=== PATIENT | male | born 1965 | race African-American/Black ===

== ENCOUNTER 2022-10-01 09:05 | Emergency (ER) | payer MEDICAID, SELFPAY ==
[2022-10-01 09:06] VITALS: BP 155/99; PULSE 72; RESP 16; TEMP 36.1; O2SAT 100; BMI 26.7
[2022-10-01 09:12] VITALS: PULSE 70; RESP 16; O2SAT 100
--- NOTE | 2022-10-01 09:20 | EKG12_ITS ---
Test Reason : LEFT ARM NUMBNESS Blood Pressure : / mmHG Vent. Rate : 066 BPM Atrial Rate : 066 BPM P-R Int : 196 ms QRS Dur : 150 ms QT Int : 438 ms P-R-T Axes : 039 -35 012 degrees QTc Int : 459 ms Normal sinus rhythm Left axis deviation Right bundle branch block Minimal voltage criteria for LVH, may be normal variant ( R in aVL ) Abnormal ECG Confirmed by ANA ROSA KAUR, CARMEN ([id number]), commissioning editor MELANIE BARBER ([id number]) on 10/05/2022 12:24:48 PM Referred By: TL Confirmed By:CARMEN OSEGUERA MD
[2022-10-01 09:29] LABS: Absolute Lymphocyte Count 1.86 X10^3/uL (0.83-4.51); Absolute Neutrophil Count 2.6 X10^3/uL (2.0-7.7); Basophil# 0.01 X10^3/uL; Basophil% 0.2 % (0-1); Eosinophil# 0.22 X10^3/uL; Eosinophils% 4.3 % (0-5); Hemoglobin 12.5 g/dL (13.0-16.5); Lymphocyte # 1.86 X10^3/ul (0.83-4.51); Mean Corp Hgb Conc 32.9 g/dL (32-36); Mean Corpuscular Hgb 27.7 pg (27.0-32.0); Mean Corpuscular Volume 84.1 fL (80-94); Mean Platelet Vol. 10.4 fl (6.2-12.0); Monocyte# 0.44 X10^3/uL; Monocyte% 8.5 % (0-10); NRBC Flagged by Analyzer 0 % (0-5); Neutrophil # 2.62 X10^3/uL (2.7-7.7); Neutrophil % 50.8 % (47-70); Platelet Count 207 K/mm3 (150-450); RBC Distribution Width CV 14.6 % (11.6-14.6); RBC Distribution Width SD 44.7 fl (35.1-43.9); Red Blood Count 4.52 M/mm3 (4.6-6.2); White Blood Count 5.2 K/mm3 (4.4-11.0)
[2022-10-01 09:45] LABS: ALB/GLOB Ratio 1.2 RATIO (0.9-2.4); AST(SGOT) 20 U/L (15-37); Alanine Aminotransfer ALT/SGPT 23 U/L (16-61); Albumin, Serum 3.7 g/dL (3.2-5.0); Alkaline Phosphatase 49 U/L (45-117); Anion Gap 7 (5-15); BUN 15 mg/dL (7-18); Calcium,Total 8.6 mg/dL (8.5-10.1); Chloride 111 mmol/L (98-107); EST Glomerular Filtration Rate 82 mL/min (>60); Est Glom Filt Rate - Afr Amer 99 mL/min (>60); Estimated Creatinine Clearance 101.27 ml/min; Globulin 3.2 g/dL (2.2-4.2); Glucose 105 mg/dL (74-106); Potassium 3.6 mmol/L (3.5-5.1); Protein, Total 6.9 g/dL (6.4-8.2); Sodium Level 143 mmol/L (136-145)
[2022-10-01 10:02] LABS: Bacteria 0 SEEN /hpf (None Seen); Red Blood Cells-Urine 0 SEEN /hpf (0-5); White Blood Cells 0 SEEN /hpf (0-5)
[2022-10-01 10:03] LABS: Color, Urine Yellow (Yellow); Glucose, Dipstick Normal (Normal); Ketone-Dipstick Negative (Negative); Leukocyte Esterase-Dipstick Negative /ul (Negative); Nitrite-Dipstick Negative (Negative); Occult Blood-Urine 10 /ul (Negative); Protein-Dipstick 15 mg/dl (Negative); Specific Gravity, Urine 1.025 (1.002-1.030); Urine Bilirubin Dipstick Negative (Negative); Urine Clarity Sl. Cloudy (Clear); Urine Urobilinogen Normal (Normal)
--- NOTE | 2022-10-01 10:15 | EX.ED.DYSGE1 ---
HPI History of Present Illness Chief Complaint: Syncope Detail of Chief Complaint: Patient reports transient syncope Informant: patient Onset/Context/Timing Onset: Weeks Context: Sudden Onset Timing: Intermittent Quality: Falls back and duration is seconds Location: Several episodes at work and in the emergency department during history por Current Severity: Mild Maximum Severity: Moderate Worsened by: Nothing Relieved by: Nothing Associated Symptoms Associated Symptoms: Bilateral lower extremity swelling involving the legs and feet Narrative Narrative: Patient is a 56-year-old male with history of hypertension. He has relocated from [facility]. Records from outside facility were reviewed. Patient had an echocardiogram in 2020 which revealed a EF of 58%. There was mild biatrial enlargement noted. Patient is concerned because of the swelling of his legs and feet. This is a new symptom. He denies orthopnea or PND. He denies dyspnea, dyspnea on exertion. He denies chest discomfort with exertion or at rest. He denies history of VTE. He denies risk factors for VTE. He denies pain or discoloration of his legs. He denies fever, chills night sweats. He denies headache, visual, ocular auditory symptoms. Prior similar symptoms: Yes Recent Illness/Hospitalization: No [facility] BY [facility] Medical History Depression High cholesterol Hypertension Home Medications aspirin 81 mg tablet,delayed release 81 mg PO DAILY 10/01/22 [History Last Taken Unknown] bupropion HCl 150 mg 24 hr tablet, extended release 150 mg PO DAILY 10/01/22 [History Last Taken Unknown] duloxetine 60 mg capsule,delayed release 60 mg PO DAILY 10/01/22 [History Last Taken Unknown] lisinopril 20 mg-hydrochlorothiazide 25 mg tablet 1 tab PO DAILY 10/01/22 [History Last Taken Unknown] Allergy/AdvReac Type Severity Reaction Status Date / Time No Known Allergies Allergy Verified 10/01/22 09:08 Family History other other (Patient states he has had 4 family members who suddenly.) Social History (Updated 10/01/22 @ 10:[address] Juan Horn MD) household members: none Smoking Status: Current every day smoker tobacco type: cigarettes alcohol intake: never substance use type: does not use ROS ROS ED Constitutional Constitutional ED: Denies chills, fever(s), subjective, sweats or weight loss Eyes Eyes: Denies blurry vision, change in vision or diplopia ENT ENT ED: Denies ear pain, rhinorrhea or sore throat Cardiovascular Cardiovascular: Denies chest pain, orthopnea, palpitations, paroxysmal nocturnal dyspnea or racing heartbeat Respiratory/Chest Respiratory/Chest: Denies cough, dyspnea, dyspnea on exertion, orthopnea or paroxysmal nocturnal dyspnea Gastrointestinal Gastrointestinal: Denies abdominal pain, melena, nausea or vomiting Genitourinary Genitourinary ED: Denies dysuria or hematuria Musculoskeletal Musculoskeletal: Denies arthralgias, back pain, myalgias or neck pain Integumentary Denies rash Neurologic Neurologic: Denies headache(s), paresthesias or weakness Psychiatric Psychiatric: Reports anxiety Hematologic/Lymphatic Hematologic/Lymphatic: Reports systems reviewed and no addt'l complaints, except as documented and none EXAM Physical Exam Const Vital Signs: 10/01/22 09:06 10/01/22 09:12 10/01/22 09:12 Temperature 97.0 F L Temperature Source Temporal Pulse Rate 72 70 Respiratory Rate 16 16 Respiratory Pattern Normal Blood Pressure 155/99 H Blood Pressure Mean 117 Pulse Ox 100 100 Oxygen Delivery Method Room Air Room Air 10/01/22 10:21 Temperature Temperature Source Pulse Rate 60 Respiratory Rate 18 Respiratory Pattern Blood Pressure 133/96 H Blood Pressure Mean 108 Pulse Ox 100 Oxygen Delivery Method Room Air Positive well nourished and well developed General Appearance ED: well developed and NAD; Negative for cyanotic, diaphoretic or pallor HEENT Reports moist mucous membranes HEENT Narrative: Head is atraumatic normocephalic. Ears normal. Nares patent. There is no discharge. Mucosas moist. Uvula is midline. There is no erythema or exudate the posterior pharynx. Eyes PERRL and EOMs intact bilaterally General Eye ED: Negative for pale conjunctiva or scleral icterus Neck no lymphadenopathy, supple and no JVD Neck Narrative: Trachea is midline. Chest Wall inspection of chest normal and palpation of chest normal Resp normal respiratory effort and clear to auscultation bilaterally Cardio regular rate, regular rhythm, S1 normal heart sound, S2 normal heart sound and no murmurs GI normal to inspection, nondistended, normoactive bowel sounds, non-tender, non-distended and no masses; Negative for hepatosplenomegaly GI Narrative: There is no palpable pulsatile mass. There is no abdominal bruit. Palpation: soft Back/Spine no CVA tenderness Extremity Extremity Narrative: There is no discoloration, leg vein distention, palpable cords tenderness on the distribution of deep venous system. General Extremety ED: Yes edema; Negative for tenderness General Extremity: edema Neuro oriented x3, CN's II-XII intact bilaterally and no sensory deficits noted Sensorium / Orientation: alert Psych mental status grossly normal Skin no rashes or lesions noted, no wounds and skin turgor normal General Skin Exam: Negative for jaundice or pallor MDM MDM MDM Narrative Medical decision making narrative: Patient presents transient syncopal episode. He also presents because of swelling of his legs and feet. Of note during the history he reported episode. Monitor reveals a sinus rhythm. There is no evidence of heart block. There was no dysrhythmia. There was no loss of postural tone. Suspect patient's reported syncopal episode is a component of anxiety. Also understand that patient's had for family numbers who suddenly. Since patient has no abnormal auscultatory findings chest x-ray was not obtained. The lymphedema may be dependent. Will obtain UA to assess for proteinuria and comprehensive metabolic panel to assess electrolytes, renal function and total protein and albumin. If patient does endorse less swelling in his feet when he awakes from sleep. This would suggest dependent lymphedema. Recommended compression hoses. Patient's blood pressure at time of discharge was 126/92. Lab Data Attestation: I reviewed the patient's lab results. Lab results narrative: CBC is normal. Comprehensive metabolic panel is essentially normal. Chloride is slight elevated 111. UA is remarkable for occult blood and proteinuria, 15. This would not explain patient's bilateral lymphedema. Labs: Laboratory Results - last 24 hr 10/01/22 10/01/22 10/01/22 09:15 09:15 09:55 WBC 5.2 RBC 4.52 L Hgb 12.5 L Hct 38.0 L MCV 84.1 MCH 27.7 MCHC 32.9 RDW Std Deviation 44.7 H RDW Coeff of Stu 14.6 Plt Count 207 MPV 10.4 Immature Gran % (Auto) 0.200 Neut % (Auto) 50.8 Lymph % (Auto) 36.0 [place] % (Auto) 8.5 Eos % (Auto) 4.3 Baso % (Auto) 0.2 Absolute Neuts (auto) 2.6 Absolute Lymphs (auto) 1.86 Nucleated RBC % 0 Sodium 143 Potassium 3.6 Chloride 111 H Carbon Dioxide 25.0 Anion Gap 7 BUN 15 Creatinine 1.00 Estim Creat Clear Calc 101.27 Est GFR (MDRD) Af Amer 99 Est GFR (MDRD) Non-Af 82 BUN/Creatinine Ratio 15.0 Glucose 105 Calcium 8.6 Total Bilirubin 0.40 AST 20 ALT 23 Alkaline Phosphatase 49 Total Protein 6.9 Albumin 3.7 Globulin 3.2 Albumin/Globulin Ratio 1.2 Urine Color Yellow Urine Clarity Sl. Cloudy Urine pH 6.0 Ur Specific [place] 1.025 Urine Protein 15 H Urine Glucose (UA) Normal Urine Ketones Negative Urine Occult Blood 10 H Urine Nitrite Negative Urine Bilirubin Negative Urine Urobilinogen Normal Ur Leukocyte Esterase Negative Urine RBC 0 SEEN Urine WBC 0 SEEN Ur Squamous Epith Cells 0-5 SEEN Urine Bacteria 0 SEEN Urine Mucus 4+ Discharge Plan Triage Chief Complaint: Syncope ED Provider: Juan Horn Dx/Rx/DC Orders Clinical Impression: Lymphedema of both lower extremities, Hypertension, Proteinuria, Hematuria, microscopic Instructions: ED Peripheral Edema, Bilateral, ED Hypertension, Established Prescriptions: No Action aspirin [Aspir-81] 81 mg Tablet,Delayed Release (Dr/Ec) 81 mg PO DAILY lisinopril-hydrochlorothiazide 20-25 mg Tablet 1 tab PO DAILY bupropion HCl 150 mg Tablet Extended Release 24 Hr 150 mg PO DAILY duloxetine 60 mg Capsule,Delayed Release(Dr/Ec) 60 mg PO DAILY Primary Care Provider: RAMIREZ LYON Referrals: RAMIREZ LYON [Other] Arya Boland MD [Med Staff - Installation Drafter] - 1-2 Weeks Disposition Disposition: Home, Self Care
[2022-10-01 10:18] LABS: Mucous, Urine 4+ /hpf (<or=2+)
[2022-10-01 10:20] LABS: Squamous Epithelial Cells - UA 0-5 SEEN /hpf (0-5)
[2022-10-01 10:21] VITALS: BP 133/96; PULSE 60; RESP 18; O2SAT 100
[2022-10-01 10:54] VITALS: BP 135/101; PULSE 72; RESP 16; O2SAT 99
== END 2022-10-01 10:55 | disposition home or self-care (01) ==
PROVIDERS: Emergency Provider Emergency Medicine; Visit Provider Emergency Medicine
DX: R80.9 Proteinuria, unspecified (principal); I10 Essential (primary) hypertension; R31.29 Other microscopic hematuria; I89.0 Lymphedema, not elsewhere classified; R55 Syncope and collapse; M79.89 Other specified soft tissue disorders; E78.00 Pure hypercholesterolemia, unspecified; F17.210 Nicotine dependence, cigarettes, uncomplicated; Z79.82 Long term (current) use of aspirin; Z79.899 Other long term (current) drug therapy; F41.9 Anxiety disorder, unspecified
CPT/HCPCS: 80053; 81001; 85025; 93005; 99283; A4216

== ENCOUNTER → 2023-06-08 | Outpatient (CLI) | payer MEDICAID, SELFPAY ==
[2023-06-08 13:43] LABS: Hemoglobin 15.1 g/dL (13.0-16.5); Mean Corp Hgb Conc 32.8 g/dL (32-36); Mean Corpuscular Hgb 28.1 pg (27.0-32.0); Mean Corpuscular Volume 85.7 fL (80-94); Mean Platelet Vol. 10.9 fl (6.2-12.0); Platelet Count 231 K/mm3 (150-450); RBC Distribution Width CV 13.9 % (11.6-14.6); RBC Distribution Width SD 43.8 fl (35.1-43.9); Red Blood Count 5.37 M/mm3 (4.6-6.2); White Blood Count 5.3 K/mm3 (4.4-11.0)
[2023-06-08 14:00] LABS: ALB/GLOB Ratio 1.1 RATIO (0.9-2.4); AST(SGOT) 20 U/L (15-37); Alanine Aminotransfer ALT/SGPT 43 U/L (16-61); Albumin, Serum 4.1 g/dL (3.2-5.0); Alkaline Phosphatase 74 U/L (45-117); Anion Gap 6 (5-15); BUN 15 mg/dL (7-18); BUN/Creat Ratio 12.9 RATIO (10-20); Calcium,Total 9.4 mg/dL (8.5-10.1); Chloride 106 mmol/L (98-107); Creatinine, Serum 1.16 mg/dL (0.70-1.30); EST Glomerular Filtration Rate 69 mL/min (>60); Est Glom Filt Rate - Afr Amer 83 mL/min (>60); Globulin 3.6 g/dL (2.2-4.2); Glucose 107 mg/dL (74-106); Potassium 3.9 mmol/L (3.5-5.1); Protein, Total 7.7 g/dL (6.4-8.2); Sodium Level 139 mmol/L (136-145)
== END | disposition home or self-care (01) ==
PROVIDERS: Referring Provider Family Medicine; Visit Provider Family Medicine
DX: F11.20 Opioid dependence, uncomplicated (principal)
CPT/HCPCS: 36415; 80053; 85027